=== PATIENT | female | born 1995 | race Caucasian/White ===

== ENCOUNTER 2017-04-23 08:16 | Inpatient (IN) | payer MEDICAID ==
[~2017-04-23] VITALS: Ht 162.6 cm; Wt 86.0 kg
[2017-04-23] MEDS ORDERED: OXYTOCIN 30U/ 0.9% NaCL 500ML 500 ML IV ONE (08:32)
[2017-04-23] MEDS ORDERED: D5%-LACTATED RINGERS 1,000 ML IV SCH (08:32)
[2017-04-23] MEDS ORDERED: OXYTOCIN 30U/ 0.9% NaCL 500ML 500 ML IV PRN (08:32)
[2017-04-23] MEDS ORDERED: NEWBORN KIT ONE (08:37)
[2017-04-23] MEDS ORDERED: OXYTOCIN 30U/ 0.9% NaCL 500ML 500 ML ONE ×2 (08:37→22:11)
[2017-04-23] MEDS ORDERED: LIDOCAINE 1%, 20ML ONE (08:37)
[2017-04-23] MEDS ORDERED: MISOPROSTOL 200 MCG TABLET ONE ×2 (08:37→21:38)
[2017-04-23 09:00] VITALS: BP 116/58
[2017-04-23] MEDS ORDERED: ONDANSETRON 2MG/ML, 2ML IVPush PRN ×2 (09:00→19:30)
[2017-04-23] MEDS ORDERED: FENTANYL PF 100 MCG/2ML IV PRN (09:00)
[2017-04-23] MEDS ORDERED: PLEASE ENTER HEIGHT AND WEIGHT MC SCH (09:00)
[2017-04-23] MEDS ORDERED: CALCIUM CARBONATE 500 MG TAB.CHEW PO PRN (09:00)
[2017-04-23] MEDS ORDERED: FENTANYL PF 100 MCG/2ML IVPush PRN (09:00)
[2017-04-23] MEDS ORDERED: TERBUTALINE 1 MG/ML, 1ML IVPush PRN (09:00)
[2017-04-23 09:19] LABS: HEMATOCRIT 36.9 % (34.6-47.8); HEMOGLOBIN 12.3 g/dL (11.7-16.4)
[2017-04-23] MEDS ORDERED: FENTANYL PF 100 MCG/2ML ONE ×2 (16:04→17:28)
[2017-04-23] MEDS: LACTATED RINGERS 1,000 ML IV SCH ×3 (16:32→23:55)
[2017-04-23] MEDS ORDERED: BUPIVACAINE 0.25% ONE (17:28)
[2017-04-23] MEDS ORDERED: FENTANYL/BUPIV./NS/PF 250 ML EPIDCONT ONE (17:29)
[2017-04-23] MEDS: FENTANYL/BUPIV./NS/PF 250 ML EPIDCONT SCH (19:30)
[2017-04-23] MEDS ORDERED: EPHEDRINE 50 MG/ML, 1ML IVPush PRN (19:30)
[2017-04-23] MEDS ORDERED: LACTATED RINGERS 1,000 ML IVBOLUS PRN (19:30)
[2017-04-23] MEDS ORDERED: IBUPROFEN 600 MG TABLET ONE (22:09)
[2017-04-23] MEDS: OXYTOCIN 30U/ 0.9% NaCL 500ML 500 ML IV SCH (22:16)
[2017-04-23] MEDS: IBUPROFEN 600 MG TABLET PO PRN (22:19)
[2017-04-23] MEDS ORDERED: METHYLERGONOVINE 0.2 MG/ML IM PRN (22:30)
[2017-04-23] MEDS ORDERED: OXYTOCIN 10 UNITS/ML, 1ML IM PRN (22:30)
[2017-04-23] MEDS ORDERED: CARBOPROST TROMETHAMINE 250 MCG/ML, 1ML IM PRN (22:30)
[2017-04-23] MEDS ORDERED: ONDANSETRON 2MG/ML, 2ML IV PRN (22:30)
[2017-04-23] MEDS ORDERED: MISOPROSTOL 200 MCG TABLET PR PRN (22:30)
[2017-04-23] MEDS ORDERED: ACETAMINOPHEN 325 MG TABLET PO PRN (22:30)
[2017-04-24 00:30] VITALS: BP 109/62
[2017-04-24] MEDS: OXYcodone/APAP 5/325MG TABLET PO PRN ×5 (00:41→22:48)
[2017-04-24] MEDS: LACTATED RINGERS 1,000 ML IV SCH ×3 (03:30→19:30)
[2017-04-24 05:10] VITALS: BP 108/69
[2017-04-24] MEDS: IBUPROFEN 600 MG TABLET PO PRN ×3 (05:52→22:48)
[2017-04-24 06:37] LABS: HEMATOCRIT 33.1 % (34.6-47.8); WHITE BLOOD COUNT 14.6 x10^3/uL (3.4-10)
[2017-04-24 07:15] VITALS: BP 109/71
[2017-04-24] MEDS ORDERED: PRENATAL VIT/IRON/FA 1 EACH TABLET ONE (07:36)
[2017-04-24] MEDS: PRENATAL VIT/IRON/FA 1 EACH TABLET PO SCH (07:45)
[2017-04-24] MEDS: DOCUSATE 100 MG CAPSULE PO PRN ×2 (07:46→22:48)
[2017-04-24] MEDS: OXYTOCIN 30U/ 0.9% NaCL 500ML 500 ML IV SCH ×2 (08:16→18:16)
[2017-04-24 12:15] VITALS: BP 112/64
[2017-04-24 16:10] VITALS: BP 121/97
[2017-04-24] MEDS ORDERED: DIPH,PERTUSS(ACELL),TET VAC/PF NC IM-VACC ONE ×2 (16:39→17:00)
[2017-04-24] MEDS: FENTANYL/BUPIV./NS/PF 250 ML EPIDCONT SCH (19:30)
[2017-04-24 20:15] VITALS: BP 107/67
[2017-04-25] MEDS: LACTATED RINGERS 1,000 ML IV SCH ×2 (03:30→11:30)
[2017-04-25] MEDS: OXYTOCIN 30U/ 0.9% NaCL 500ML 500 ML IV SCH ×2 (04:16→14:16)
[2017-04-25] MEDS: OXYcodone/APAP 5/325MG TABLET PO PRN ×3 (04:52→16:45)
[2017-04-25] MEDS: IBUPROFEN 600 MG TABLET PO PRN ×3 (04:52→16:45)
[2017-04-25 07:30] VITALS: BP 116/67
[2017-04-25] MEDS: PRENATAL VIT/IRON/FA 1 EACH TABLET PO SCH (08:28)
[2017-04-25] MEDS ORDERED: IBUP-1222 PO (10:23)
[2017-04-25] MEDS ORDERED: HYDR-3240 PO (10:23)
[2017-04-25] MEDS ORDERED: SENN-52 PO (10:24)
== END 2017-04-25 17:15 | disposition home or self-care (01) | DRG 775 ==
LOC: LDIP 08:16 → 2NW 04-24 00:16
PROVIDERS: ADMIT Obstetrics & Gynecology; ATTEND Obstetrics & Gynecology
PROC: 10E0XZZ Delivery of Products of Conception, External Approach (ICD-10-PCS; principal; 2017-04-23)
PROC: 10907ZC Drainage of Amniotic Fluid, Therapeutic from Products of Conception, Via Natural or Artificial Opening (ICD-10-PCS; 2017-04-23)
PROC: 0HQ9XZZ Repair Perineum Skin, External Approach (ICD-10-PCS; 2017-04-23)
PROC: 3E0R3BZ Introduction of Anesthetic Agent into Spinal Canal, Percutaneous Approach (ICD-10-PCS; 2017-04-23)
PROC: 00HU33Z Insertion of Infusion Device into Spinal Canal, Percutaneous Approach (ICD-10-PCS; 2017-04-23)
DX: O70.0 First degree perineal laceration during delivery (principal); Z37.0 Single live birth; Z3A.39 39 weeks gestation of pregnancy
CPT/HCPCS: 36415; 85025; 86850; 86900; 90715; J3010; J2590; J7120

== ENCOUNTER 2018-12-26 17:09 | Emergency (ER) | payer MEDICAID ==
[~2018-12-26] VITALS: Ht 162.6 cm; Wt 80.0 kg
[~2018-12-26 17:09] MED LIST: HYDR-3240 PO; IBUP-1222 PO; SENN-52 PO
[2018-12-26] MEDS ORDERED: HALOPERIDOL 5 MG/ML ONE (17:19)
[2018-12-26] MEDS ORDERED: HALOPERIDOL 5 MG/ML IM ONE (17:30)
[2018-12-26 17:45] LABS: BASOPHILS # (AUTO) 0.06 x10^3/uL (0-0.1); BASOPHILS % (AUTO) 0 % (0-1); EOSINOPHILS # (AUTO) 0.23 x10^3/uL (0-0.4); EOSINOPHILS % (AUTO) 2 % (1-7); LYMPHOCYTES # (AUTO) 1.89 x10^3/uL (1-3.4); LYMPHOCYTES % (AUTO) 13 % (22-44); MD NO; MEAN CORPUSCULAR HEMOGLOBIN 29.4 pg (27.0-34.8); MEAN CORPUSCULAR HGB CONC 32.6 g/dL (32.4-35.8); MEAN CORPUSCULAR VOLUME 90.1 fL (80-100); MEAN PLATELET VOLUME 7.8 fL (7.4-10.4); MONOCYTES # (AUTO) 0.75 x10^3/uL (0.2-0.8); MONOCYTES % (AUTO) 5 % (2-9); NEUTROPHILS # (AUTO) 12.11 x10^3/uL (1.8-6.8); NEUTROPHILS % (AUTO) 81 % (42-75); PLATELET COUNT 391 x10^3/uL (130-400); RED BLOOD COUNT 4.83 x10^6/uL (3.82-5.3); RED CELL DISTRIBUTION WIDTH 15.4 % (9.6-15.2)
--- NOTE | 2018-12-26 17:46 | NUR ---
LATE ENTRY FOR 1709 23 Y/O BIB AMBULANCE WITH C/O ETOH. PER REPORT PT WAS FOUND TRYING TO GET INTO A CAR ON [address] IN [place]. THE SENIOR HRIS ANALYST OF THE CAR DIDN'T KNOW PT AND TOOK OFF. PT HAS ABRASIONS ON LEFT FORE ARM. PT VERY COMBATIVE, CURSING AT STAFF. "FUCK YOU CUNT!!! GET AWAY FROM ME!! I WANT TO LEAVE!! YOU'RE A FUCKING BITCH!!" PT TRANSFERRED TO [facility]. PT COMBATIVE AND CONTINUES TO CURSE AT STAFF AND EMS. SECURITY CALLED FOR ASSISTANCE. PT WAS UNABLE TO STAND WITH A STEADY GAIT.
--- NOTE | 2018-12-26 17:47 | NUR ---
BEDSIDE REPORT FROM BRADEN GUSMAN. ASSUMED CARE OF PATIENT AT THIS TIME, PATIENT IN 4-POINT RESTRAINTS, NADN. CMS INTACT.
--- NOTE | 2018-12-26 17:48 | NUR ---
LATE ENTRY FOR 1719: EDMD NOW BEDSIDE. PT CONTINUES TO CURSE AT STAFF AND EMS. PT STATES "FUCK YOU BITCH!! I'M OUT OF HERE. YOU'RE A CUNT!!! YOU WANT TO GO??? WE CAN GO YOU FUCKING BITCH!!" PT UNABLE TO STAND WITH STEADY GAIT. PT COMBATIVE AND VERBAL ORDER FOR HALDOL GIVEN. PT STILL CONTINUING TO CURSE AT STAFF.
--- NOTE | 2018-12-26 17:50 | NUR ---
LATE ENTRY FOR 1711: PT NOW IN 4 POINT RESTRAINTS D/T BEHAVIOR AND UNSAFE TO STAFF AND SELF.
--- NOTE | 2018-12-26 17:50 | NUR ---
PT TRANSFERRED TO ROOM 35. PT HAD LARGE EPISODE OF EMESIS. PT CLEANED AND BACK ONTO [facility]. REPORT TO BRADEN LEE.
[2018-12-26 17:53] LABS: ALBUMIN 4.4 g/dL (3.4-5.0); ANION GAP 18 mmol/L (5-15); CALCIUM 8.5 mg/dL (8.5-10.1); CHLORIDE 104 mmol/L (98-107); CREATININE 0.99 mg/dL (0.55-1.02)
--- NOTE | 2018-12-26 18:25 | NUR ---
PATIENT IN CT AT THIS TIME WITH SECURITY TO REMOVE RESTRAINTS DURING CT. [facility].
--- NOTE | 2018-12-26 18:27 | NUR ---
PATIENT BACK FROM CT, 4-POINT RESTRAINTS REMAIN ON PATIENT DUE TO BEHAVIOR AT THIS TIME. CMS INTACT, NADN. SITTER AT DOORWAY WITH PATIENT IN SIGHT, MONITORS IN PLACE. VS UPDATED IN CHART.
[2018-12-26] MEDS ORDERED: POTASSIUM CHLORIDE 20 MEQ TAB.ER.PRT PO ONE (18:30)
--- NOTE | 2018-12-26 18:32 | NUR ---
PATIENT HAD EMESIS EPISODE EARLIER, UNABLE TO GIVE POTASSIUM MEDICATION PER ORDER AT THIS TIME.
--- NOTE | 2018-12-26 19:25 | NUR ---
SECURITY NOTIFIED TO TAKE PATIENT OUT OF RESTRAINTS, PATIENT AGREES TO BE COOPERATIVE. PATIENT OUT OF RESTRAINTS AT THIS TIME, PATIENT ASSISTED TO BATHROOM, PATIENT BACK TO BED, MONITORS IN PLACE, NADN. VS UPDATED IN CHART.
--- NOTE | 2018-12-26 19:59 | NUR ---
PATIENT RESTING COMFORTABLY IN RKENT, [facility] CHEST RISE AND FALL, NADN. Addendum: 12/26/18 at 2019 by ANÍBAL Amendment kurt in ED - 12/26/18 at 2020 by ANÍBAL Quach SITTER REMAINS AT DOORWAY WITH PATIENT IN SIGHT FOR PATIENT SAFETY Addendum: 12/26/18 at 2019 by EDUARD SITTER REMAINS AT DOORWAY WITH PATIENT IN SIGHT.
--- NOTE | 2018-12-26 20:32 | NUR ---
Leila hicks in ED - 12/26/18 at 2051 by EDUARD PATIENT HAD EMESIS EPISODE EARLIER, UNABLE TO GIVE POTASSIUM MEDICATION PER ORDER AT THIS TIME.
[2018-12-26] MEDS ORDERED: POTASSIUM CHLORIDE 20 MEQ TAB.ER.PRT ONE (20:56)
--- NOTE | 2018-12-26 20:59 | NUR ---
REPORT BRADEN HILARIO.
--- NOTE | 2018-12-26 21:10 | NUR ---
Report received and care assumed. PT tearful but answering questions appropriately and is cooperative. Pt is tachycardic. Unsteady when walked to BR per sitter. Discussed POC with pt and so at bedside. Pt given water to attempt PO challenge. Sitter remains in place for obs s/t fall risk. Will attempt to d/c when safe to do so.
--- NOTE | 2018-12-26 22:23 | NUR ---
pt medicated per mar with K+. Tolerating PO fluids well. Discussed with pt that she needs to drink PO to help with tachycardia. Pt also states a sig hx of anxiety. ERP to be updated to POC.
[2018-12-26] MEDS ORDERED: LORazepam 1MG TABLET PO ONE (22:30)
[2018-12-26] MEDS ORDERED: LORazepam 1MG TABLET ONE (22:31)
--- NOTE | 2018-12-26 23:07 | NUR ---
pt was medicated per AUG for HR. Encouraged to continue PO fluids. Monitors in place. Call light in reach. Report to Maria T FELICIANO.
[2018-12-26 23:54] VITALS: BP 123/55
--- NOTE | 2018-12-26 23:59 | NUR ---
PT SLEEPING ON GURNEY, FAMILY AT BEDSIDE. VSS.
== END 2018-12-27 00:48 | disposition home or self-care (01) ==
LOC: ED 12-27 00:38
DX: S00.93XA Contusion of unspecified part of head, initial encounter (principal); F10.220 Alcohol dependence with intoxication, uncomplicated; E87.6 Hypokalemia; W18.30XA Fall on same level, unspecified, initial encounter; Y93.89 Activity, other specified; Y92.89 Other specified places as the place of occurrence of the external cause; Y99.8 Other external cause status
CPT/HCPCS: 36415; 70450; 72125; 80048; 80307; 82040; 84703; 85025; 96372; 99284; J1630